=== PATIENT | female | born 1985 | race Caucasian/White ===

== ENCOUNTER 2016-10-30 13:55 | Emergency (ER) | payer SELFPAY ==
--- NOTE | 2016-10-30 14:03 | ER Document Report ---
ED Medical Screen (RME) - General Stated Complaint: ETOH Time seen by provider: 14:00 Mode of Arrival: Ambulatory Information source: Patient Notes: 31-year-old female presents to ED today for alcohol detox. She states she's had 2 shots of vodka today around 11 or 12:00. She normally drinks 4 24 ounce beers a day she's had a hysterectomy. She states she was trying to self medicate to help her get off of the alcohol with the Clonopin. She states it would also help her with her schizophrenia. I have greeted and performed a rapid initial assessment of this patient. A comprehensive ED assessment and evaluation of the patient, analysis of test results and completion of medical decision making process will be conducted by an additional ED providers. TRAVEL OUTSIDE OF THE [place] IN LAST 30 DAYS: No - Related Data Allergies/Adverse Reactions: Penicillins Allergy (Verified 11/10/15 17:12) Past Medical History - Past Medical History Cardiac Medical History: Reports: Hx Hypertension Past Surgical History: Reports: Hx Gynecologic Surgery - D&C, Hx Hysterectomy - Immunizations Hx Diphtheria, Pertussis, Tetanus Vaccination: No
[2016-10-30] MEDS ORDERED: NORMAL SALINE 1000 ML 1,000 ML IV PRN (14:17)
[2016-10-30 14:33] LABS: APPEARANCE,URINE SLIGHTLY-CLOUDY; BILIRUBIN,URINE NEGATIVE (NEGATIVE); GLUCOSE, URINE NEGATIVE (NEGATIVE); KETONES,URINE NEGATIVE (NEGATIVE); LEUKOCYTE ESTERASE,URINE NEGATIVE (NEGATIVE); NITRITE,URINE NEGATIVE (NEGATIVE); PROTEIN,URINE NEGATIVE (NEGATIVE); URINE SPECIFIC GRAVITY 1.023; UROBILINOGEN,URINE NEGATIVE mg/dL (<2.0)
[2016-10-30] MEDS ORDERED: LORAZEPAM INJ 2 MG/1 ML VIAL IV ONE (14:36)
[2016-10-30 14:50] LABS: ABSOLUTE EOSINOPHILS # (AUTO) 0.1 10^3/uL (0.0-0.6); ABSOLUTE LYMPHOCYTES (AUTO) 2.7 10^3/uL (0.5-4.7); ABSOLUTE MONOCYTES (AUTO) 0.7 10^3/uL (0.1-1.4); ABSOLUTE NEUT (AUTO) 4.7 10^3/uL (1.7-8.2); BASOPHILS % (AUTO) 0.4 % (0-2); HEMATOCRIT 45.1 % (36.0-47.0); HEMOGLOBIN 14.7 g/dL (12.0-15.5); MEAN CORPUSCULAR HEMOGLOBIN 32.2 pg (27.0-33.4); MEAN CORPUSCULAR HGB CONC 32.6 g/dL (32.0-36.0); MEAN CORPUSCULAR VOLUME 99 fl (80-97); MONOCYTES % (AUTO) 8.5 % (3-13); RED BLOOD COUNT 4.56 10^6/uL (3.72-5.28); RED CELL DISTRIBUTION WIDTH 15.6 % (11.5-14.0); SEGMENTED NEUTROPHILS % (AUTO) 57.1 % (42-78); WHITE BLOOD COUNT 8.2 10^3/uL (4.0-10.5)
--- NOTE | 2016-10-30 14:52 | ER Document Report ---
ED General - General Chief Complaint: Alcohol Withdrawl Stated Complaint: ETOH Mode of Arrival: Ambulatory TRAVEL OUTSIDE OF THE [place] IN LAST 30 DAYS: No - HPI Patient complains to provider of: alcohol with drawls Notes: Patient is coming in for evaluation of alcohol withdrawals. Patient also has a history of schizophrenia and hypertension. Patient states she is on no medications. Patient states normally drinks between 4-6 24 ounce beers a day. Patient states today she had a court appearance after the court appearance had 2 shots of vodka at around 11:00. Otherwise patient states she does feel very tremulous. Patient denies going through DTs or occult drawls before. Patient states she has gone through opiate withdrawals. Patient has been self- medicating with Klonopin. Patient is not aware of and last time she took any Klonopin this stated that she smoked marijuana night prior to arrival. Other than 2 shots of vodka this morning patient's last alcohol intake was night prior a core into family member at bedside patient was extremity drunk is unable to recall the events 24 hours ago Patient states symptoms does have hallucinations due to her schizophrenia. Patient denies any hallucinations at this time. Patient denies any homicidal suicidal ideation. - Related Data Allergies/Adverse Reactions: Penicillins Allergy (Verified 10/30/16 14:06) Past Medical History - General Information source: Patient - Social History Smoking Status: Current Every Day Smoker Chew tobacco use (# tins/day): No Frequency of alcohol use: Heavy Drug Abuse: Prescription drugs Family History: Reviewed & Not Pertinent, Other - Unknown, patient cannot provide history. Patient has suicidal ideation: No Patient has homicidal ideation: No - Past Medical History Cardiac Medical History: Reports: Hx Hypertension Renal/ Medical History: Denies: Hx Peritoneal Dialysis Past Surgical History: Reports: Hx Gynecologic Surgery - D&C, Hx Hysterectomy - Immunizations Hx Diphtheria, Pertussis, Tetanus Vaccination: No Review of Systems - Review of Systems Constitutional: No symptoms reported EENT: No symptoms reported Cardiovascular: No symptoms reported Respiratory: No symptoms reported Gastrointestinal: No symptoms reported Genitourinary: No symptoms reported Female Genitourinary: No symptoms reported Musculoskeletal: No symptoms reported Skin: No symptoms reported Hematologic/Lymphatic: No symptoms reported Neurological/Psychological: Tremor, Other - Alcohol drawls Physical Exam - Vital signs Vitals: Temp Pulse Resp BP Pulse Ox 98.4 F 113 H 20 154/101 H 96 10/30/16 14:02 10/30/16 14:02 10/30/16 14:02 10/30/16 14:02 10/30/16 14:02 Interpretation: Hypertensive, Tachycardic - General General appearance: Appears well, Alert - HEENT Head: Normocephalic, Atraumatic Eyes: Normal Pupils: PERRL - Respiratory Respiratory status: No respiratory distress Chest status: Nontender Breath sounds: Normal Chest palpation: Normal - Cardiovascular Rhythm: Tachycardia Heart sounds: Normal auscultation Murmur: No - Abdominal Inspection: Normal Distension: No distension Bowel sounds: Normal Tenderness: Nontender Organomegaly: No organomegaly - Back Back: Normal, Nontender - Extremities General upper extremity: Normal inspection - Slight tremor in bilateral upper extremities, Nontender, Normal color, Normal ROM, Normal temperature General lower extremity: Normal inspection, Nontender, Normal color, Normal ROM , Normal temperature, Normal weight bearing. No: Jules's sign - Neurological Neuro grossly intact: Yes Cognition: Normal Orientation: AAOx4 Home Coma Scale Eye Opening: Spontaneous Home Coma Scale Verbal: Oriented Home Coma Scale Motor: Obeys Commands [place] Coma Scale Total: 15 Speech: Normal Motor strength normal: LUE, RUE, LLE, RLE Sensory: Normal - Psychological Associated symptoms: Normal affect, Normal mood - Skin Skin Temperature: Warm Skin Moisture: Dry Skin Color: Normal Course - Re-evaluation Re-evalutation: 10/30/16 14:51 Patient with a slight resting tremor in her hand. Patient is tachycardic hypertensive. Patient will be given a dose of Ativan and will be fluid resuscitated. 10/30/16 22:31 Patient improved after Ativan vital signs improved agrees outpatient treatment. - Vital Signs Vital signs: Temp Pulse Resp BP Pulse Ox 98.6 F 81 20 133/86 H 94 10/30/16 16:38 10/30/16 16:38 10/30/16 16:38 10/30/16 16:38 10/30/16 16:38 - Laboratory Result Diagrams: 10/30/16 14:05 10/30/16 14:05 Laboratory results interpreted by me: 10/30/16 10/30/16 10/30/16 14:05 14:05 14:10 MCV 99 H RDW 15.6 H Glucose 111 H Calcium 10.3 H AST 138 H ALT 136 H Alkaline Phosphatase 150 H Total Protein 8.3 H Urine Ascorbic Acid 20 H Acetaminophen < 10 L [place] < 0.2 L Discharge - Discharge Clinical Impression: Alcohol abuse Condition: Good Disposition: HOME, SELF-CARE Instructions: Alcohol Withdrawl ([facility]), Chronic Alcoholism ([facility]) Additional Instructions: At this time your lab work and vital signs have improved. I believe that he will be a good candidate for outpatient therapy for her alcohol abuse. We will give you a prescription for Librium please take as directed. I would also recommend going directly over to [facility] for further outpatient evaluation Prescriptions: Chlordiazepoxide HCl [Librium 25 mg Capsule] 1 cap PO ASDIR PRN #15 capsule PRN Reason: Forms: Smoking Cessation Education
[2016-10-30 15:06] LABS: ALANINE AMINOTRANSFERASE 136 U/L (9-52); ALBUMIN 4.8 g/dL (3.5-5.0); ALKALINE PHOSPHATASE 150 U/L (38-126); ANION GAP 14 (5-19); ASPARTATE AMINO TRANSFERASE 138 U/L (14-36); BILIRUBIN,TOTAL 0.8 mg/dL (0.2-1.3); BLOOD UREA NITROGEN 20 mg/dL (7-20); CALCIUM 10.3 mg/dL (8.4-10.2); CARBON DIOXIDE 29 mmol/L (22-30); CHLORIDE 99 mmol/L (98-107); CREATININE RESULT 1.04 mg/dL (0.52-1.25); GLUCOSE 111 mg/dL (75-110); LIPASE 132.8 U/L (23-300); MAGNESIUM 1.6 mg/dL (1.6-2.3); POTASSIUM 3.9 mmol/L (3.6-5.0); SODIUM 141.6 mmol/L (137-145); TOTAL PROTEIN 8.3 g/dL (6.3-8.2)
[2016-10-30 15:08] LABS: ALCOHOL < 10 mg/dL (NONE DETECTED); LITHIUM < 0.2 mEq/L (0.6-1.2)
[2016-10-30 16:22] LABS: URINE BARBITURATES SCREEN NEGATIVE; URINE METHADONE SCREEN NEGATIVE; URINE PHENCYCLIDINE SCREEN NEGATIVE
[2016-10-30 16:40] VITALS: BP 133/86
--- NOTE | 2016-10-30 16:56 | PSYCHOLOGICAL NOTE ---
Psych Note - Psych Note Psych Note: Patient presented to [facility] ED for evaluation for alcohol withdrawals. Patient also has a history of schizophrenia and hypertension. Patient states she is on no medications. As patient states that she has been drinking for approximately 4 years and at times uses marijuana and will take a Klonopin if somebody has one. She continue disclose that she's been having mental health issues and that are getting worse starting to affect her daily living. She disclosed that she has audio and visual hallucinations with delusions of persecution. She states last night she broke the windows of the trailer because helicopter was going over and moving the windows in an odd way and she thought they were talking to her. She continued disclosed that she hears voices inside and outside of her head however does not recognize the voice. She states she does understand what they say and is both good and bad however is unable to disclose an example of what the voices say. Patient states that her visual hallucinations are when she is looking at something such as a tree it starts to move an odd way and then talk. Patient disclosed that current symptoms have "increased over the last month or so." Patient disclosed that she has had 4 inpatient treatment to at [facility] one rehabilitation in [place] and another rehabilitation in [place]. Patient disclosed that she does not take any mental health medications and it does not receive any outpatient services. Patient denies wanting to hurt herself or others. Patient significant other, Fabrice, started to disclose traumatic event that occurred from patient's acts. Clinician noted patient becoming agitated and requested significant other to provide time for clinician to speak with patient privately. Significant other complied. When patient asked about traumatic event, patient was unwilling to discuss event stating that it happened long time ago and there is no reason to think about it. When asked when it occurred the patient stated it was a few months ago. Patient is alert and orientated to person place time and circumstance. Mood is dysphoric with restricted affect; it is noted patient is currently going through alcohol withdrawal demonstrated by shaking. Patient denies suicidal homicidal ideation. Patient endorses auditory and visual hallucinations; it is noted visual hallucinations are not congruent with known in manifestations of visual hallucinations. It is also noted that the patient was unable to identify examples of auditory hallucinations. Some delusions of persecution are noted; however, patient disclosed traumatic event that occurred a few months ago. Patient's thought processes are logical, organized and linear. Conversational speech within normal rate tone and prosody. Eye contact was well maintained. Intellectual abilities appear to be within normal range. Attention and concentration are good. Insight, judgment, impulse control are fair. 291.9 (F 10.99) Unspecified Alcohol-Related Disorder Impression\\plan: Patient is psychiatrically cleared for discharge. Patient and clinician discussed symptoms of substance abuse overlapping reported mental health symptoms. Patient agreed substance abuse treatment was needed. Patient agreed to outpatient services for substance abuse with [facility] so both her mental health and substance abuse can be addressed. Patient denies suicidal homicidal ideation. Patient is psychiatrically cleared for discharge; attending physician is in agreement with recommendations and disposition.
== END 2016-10-30 17:13 | disposition home or self-care (01) ==
LOC: ER 13:55
DX: F10.239 Alcohol dependence with withdrawal, unspecified (principal); F17.200 Nicotine dependence, unspecified, uncomplicated; I10 Essential (primary) hypertension; F20.9 Schizophrenia, unspecified; Z88.0 Allergy status to penicillin; Z90.710 Acquired absence of both cervix and uterus
CPT/HCPCS: 99285; 96361; 96374; 36415; 80307 ×3; 83690; 80178; 83735; 85025; 81025; 80053; 81001; J2060; J7030

== ENCOUNTER 2016-11-01 09:41 | Emergency (ER) | payer SELFPAY ==
[2016-11-01] MEDS ORDERED: DIPHENHYDRAMINE HCL 50 MG CAPSULE PO ONE (10:12)
[2016-11-01] MEDS ORDERED: FAMOTIDINE 20 MG TABLET PO ONE (10:12)
[2016-11-01] MEDS ORDERED: LORAZEPAM 1 MG TABLET PO ONE ×2 (10:13→12:42)
--- NOTE | 2016-11-01 10:34 | ER Document Report ---
ED Medical Screen (RME) - General Chief Complaint: Allergic Reaction Stated Complaint: WEAKNESS Time seen by provider: 10:11 Mode of Arrival: Ambulatory Information source: Patient Notes: 31 yo female c/o onset of hives after startin librium for alcohol withdrawal, they have persisted after serveral doses. Also anxious. Airway open, lungs clear , hypertension noted in triage. TRAVEL OUTSIDE OF THE [place] IN LAST 30 DAYS: No - Related Data Allergies/Adverse Reactions: Penicillins Allergy (Verified 11/01/16 10:07) Past Medical History - Past Medical History Cardiac Medical History: Reports: Hx Hypertension Renal/ Medical History: Denies: Hx Peritoneal Dialysis Musculoskeltal Medical History: Denies Hx Arthritis Past Surgical History: Reports: Hx Gynecologic Surgery - D&C, Hx Hysterectomy - Immunizations Hx Diphtheria, Pertussis, Tetanus Vaccination: No Physical Exam - Vital signs Vitals: Temp Pulse Resp BP Pulse Ox 98.0 F 98 16 154/119 H 100 11/01/16 10:09 11/01/16 10:09 11/01/16 10:09 11/01/16 10:09 11/01/16 10:09 Course - Vital Signs Vital signs: Temp Pulse Resp BP Pulse Ox 98.0 F 98 24 H 133/91 H 99 11/01/16 12:05 11/01/16 10:09 11/01/16 14:11 11/01/16 14:11 11/01/16 14:11 - Laboratory Result Diagrams: 11/01/16 10:25 11/01/16 10:25 Laboratory results interpreted by me: 11/01/16 11/01/16 10:25 10:25 MCV 98 H RDW 15.3 H Glucose 64 L AST 91 H ALT 111 H Doctor's Discharge - Discharge Clinical Impression: Allergic reaction, Anxiety Condition: Stable Disposition: HOME, SELF-CARE Additional Instructions: ACUTE ALLERGIC REACTION: Your symptoms are due to an allergic reaction. Allergy can cause hives, swelling of the hands, feet, and face, hoarseness, and difficulty swallowing or breathing. It may be due to exposure to medication, animal dander, foods, infection, or insect bites. Medication is a common cause, even when prior use of this same medication caused no problems. Acute treatment may include adrenalin and antihistamines. Usually, the specific allergic agent can't be identified unless repeated episodes occur. Home treatment includes the following: (1) Stop any suspicious medications. This will be discussed with you. (2) Oral antihistamines for the next four to five days. Example, diphenhydramine (Benadryl) every four hours. (3) You may also use cimetidine (Tagamet), ranitidine (Zantac), or famotidine ( Pepcid) every four hours if diphenhydramine is not controlling itching and hives. (4) Avoid aspirin until the hives completely disappear. (5) Avoid hot baths or showers until the hives are completely gone. Call the doctor if faintness, difficulty swallowing, tightness in the chest , or wheezing occurs. ACID-SUPPRESSING MEDICATION: You have a prescription for medicine which reduces the stomach's secretion of acid. Examples include Zantac, Tagament, and Pepcid. These drugs are often used to allow healing of ulcers or esophagitis. They may be needed to prevent recurrence of ulcers in some patients, or to prevent damage from acid reflux in the esophagus. Take all medication as prescribed, even after the pain is gone. Regular antacids may be added as needed if you have symptoms while taking this medicine. These medications sometimes are prescribed for allergic reactions because they have anti-histaminic effects and relieve the rash and itching of the reaction. There are usually no side effects from this medication. But, in rare cases and particularly in the elderly, serious problems can occur. Contact your doctor if there is fever, rash, hallucinations, confusion, or unusual bruising. Contact your doctor at once if you develop lightheadedness, black or bloody stool, or bloody vomitus. ANTIHISTAMINES: An antihistamine has been given and/or prescribed to control your symptoms. Antihistamines are used for many reasons, including itching, watering eyes, runny nose, allergic swelling, hives, and insect stings. Antihistamines may cause drowsiness, especially with the first dose. Do not operate machinery or drive while under the effects of the medication. Other common side effects include dry mouth and eyes. In older persons, antihistamines can occasionally cause urinary retention, constipation, and trouble focusing the eyes. Do not combine the medication with alcohol, or with any other medication without talking to your doctor. USE OF DIPHENHYDRAMINE: The use of diphenhydramine (Benadryl) has been recommended to control allergic symptoms. The 25 mg strength is available over- the-counter, as well as the elixir. This antihistamine is used for many symptoms. It's useful for itching, watering eyes and nose, allergic swelling, hives, and insect stings. The medication can be repeated four times daily. Age Elixir (12.5 mg/tsp) 25 mg pill adult 1-2 tabs Antihistamines may cause drowsiness, especially with the first dose. Do not operate machinery or drive while under the effects of the medication. Do not combine the medication with alcohol, or with any other medication without talking to your doctor. Anxiety The physician feels that some of your health problems are being caused by anxiety. Anxiety affects your health in many ways. Anxiety alone can cause palpitations, sweats, chest pains, abdominal pains, shortness of breath, and headaches. It contributes to ulcer disease, high blood pressure, irritable bowel syndrome, and has been shown to cause flare-ups of many other diseases. Anxiety is not a simple disorder to treat. If the anxiety is due to recent life stresses, you may simply need time to "work through" the changes. If the anxiety is due to an underlying unhappiness with yourself or due to psychiatric disturbance, professional help will be needed. Your physician can refer you for further help if needed. Anti-anxiety medication is occasionally given if the stress is acute or if you are having trouble sleeping. Chronic or frequent use of these medications is not a good idea because the body becomes reliant on it, preventing you from dealing with life's normal stresses. Benzodiazepines You have been given a benzodiazepine medication. Examples of this type of medicine include Valium, Xanax, Librium, Ativan, and Halcion. Benzodiazepines have many uses. Medications of this type are used for insomnia, anxiety, muscle spasms, seizures, and drug and alcohol withdrawal. You may become very drowsy when you first take the medication. You should not drive or operate machinery while under its effects. Do not combine the medication with alcohol, or with any other medication without talking to your doctor. Do not take if without specific instruction from your puller through. Some benzodiazepines may have harmful interactions with oral antifungal medicines such as ketoconazole, itraconazole, and nefazodone. If you are taking an antifungal medicine, discuss this with your doctor before taking benzodiazepines. FOLLOW-UP CARE: If you have been referred to a physician for follow-up care, call the physician s office for an appointment as you were instructed or within the next two days. If you experience worsening or a significant change in your symptoms, notify the physician immediately or return to the Emergency Department at any time for re-evaluation. Prescriptions: Lorazepam [Ativan 1 mg Tablet] 1 - 2 mg PO Q6HP PRN #12 tab PRN Reason:
[2016-11-01 10:53] LABS: ABSOLUTE EOSINOPHILS # (AUTO) 0.2 10^3/uL (0.0-0.6); ABSOLUTE LYMPHOCYTES (AUTO) 2.5 10^3/uL (0.5-4.7); ABSOLUTE MONOCYTES (AUTO) 0.6 10^3/uL (0.1-1.4); ABSOLUTE NEUT (AUTO) 3.6 10^3/uL (1.7-8.2); BASOPHILS % (AUTO) 0.5 % (0-2); EOSINOPHILS % (AUTO) 2.3 % (0-6); HEMATOCRIT 43.7 % (36.0-47.0); HEMOGLOBIN 14.4 g/dL (12.0-15.5); HGB HCT DIFFERENCE -0.5; LYMPHOCYTES % (AUTO) 36.9 % (13-45); MEAN CORPUSCULAR HEMOGLOBIN 32.3 pg (27.0-33.4); MEAN CORPUSCULAR VOLUME 98 fl (80-97); MONOCYTES % (AUTO) 8.1 % (3-13); RED BLOOD COUNT 4.46 10^6/uL (3.72-5.28); RED CELL DISTRIBUTION WIDTH 15.3 % (11.5-14.0); SEGMENTED NEUTROPHILS % (AUTO) 52.2 % (42-78); WHITE BLOOD COUNT 6.8 10^3/uL (4.0-10.5)
[2016-11-01 11:12] LABS: ALANINE AMINOTRANSFERASE 111 U/L (9-52); ALBUMIN 4.3 g/dL (3.5-5.0); ALKALINE PHOSPHATASE 115 U/L (38-126); ANION GAP 8 (5-19); ASPARTATE AMINO TRANSFERASE 91 U/L (14-36); BILIRUBIN,TOTAL 1.1 mg/dL (0.2-1.3); BLOOD UREA NITROGEN 11 mg/dL (7-20); CARBON DIOXIDE 26 mmol/L (22-30); CHLORIDE 107 mmol/L (98-107); CREATININE RESULT 0.86 mg/dL (0.52-1.25); GLUCOSE 64 mg/dL (75-110); POTASSIUM 4.2 mmol/L (3.6-5.0); SODIUM 141.1 mmol/L (137-145); TOTAL PROTEIN 7.6 g/dL (6.3-8.2)
[2016-11-01 11:14] LABS: ALCOHOL < 10 mg/dL (NONE DETECTED)
--- NOTE | 2016-11-01 11:50 | ER Document Report ---
ED General - General Chief Complaint: Allergic Reaction Stated Complaint: WEAKNESS Mode of Arrival: Ambulatory Notes: Patient says that she developed hives evening and they've continued during the day yesterday and this morning. She was seen here on , prior to the onset of the hives, for alcohol withdrawal. She was discharged on Librium which she thinks is the cause of her allergic reaction, although she has never had this medication before. She denies taking any other medications. Patient says that she took the Librium evening just prior to the onset of the hives and then she took it several times yesterday, as prescribed. And, she took it this morning around 5 AM when she awakened. She says she has a history of anxiety Denies any nausea or vomiting or diarrhea. Denies any difficulty breathing or shortness of breath. Denies any fever. PMH: Alcohol abuse, anxiety, ADHD, schizophrenia, on no medications for these conditions. TRAVEL OUTSIDE OF THE [place] IN LAST 30 DAYS: No - Related Data Allergies/Adverse Reactions: Penicillins Allergy (Verified 11/01/16 10:07) Past Medical History - General Information source: Patient - Social History Smoking Status: Current Every Day Smoker Cigarette use (# per day): Yes Chew tobacco use (# tins/day): No Frequency of alcohol use: Heavy Drug Abuse: None Family History: Reviewed & Not Pertinent, Other - Unknown, patient cannot provide history. Patient has suicidal ideation: No Patient has homicidal ideation: No - Past Medical History Cardiac Medical History: Reports: Hx Hypertension, Hx Heart Murmur Musculoskeltal Medical History: Denies Hx Arthritis Psychiatric Medical History: Reports: Hx Anxiety, Hx Attention Deficit Hyperactivity Disorder, Hx Schizophrenia, Other - Alcohol abuse Past Surgical History: Reports: Hx Gynecologic Surgery - D&C, Hx Hysterectomy - Immunizations Hx Diphtheria, Pertussis, Tetanus Vaccination: No Review of Systems - Review of Systems Notes: REVIEW OF SYSTEMS: CONSTITUTIONAL : Denies fever. EENT: Denies eye, ear, nose or mouth or throat pain or other symptoms. CARDIOVASCULAR: Denies chest pain. RESPIRATORY: Denies cough, chest congestion, or shortness of breath. GASTROINTESTINAL: Denies abdominal pain or nausea, vomiting, or diarrhea. GENITOURINARY: Denies difficulty or painful urinating, urinary frequency, blood in urine. MUSCULOSKELETAL: Denies back or neck pain. Denies joint pain or swelling. SKIN: See history of present illness. NEUROLOGICAL: Denies LOC or altered mental status. Denies sensory loss or motor deficits. PSYCHIATRIC: History of anxiety and stress. Also ADHD and schizophrenia ALL OTHER SYSTEMS REVIEWED AND NEGATIVE. 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 Heart rate appears to be 120s on the monitor. HEAD: Atraumatic, normocephalic. ENT: oropharynx clear without exudates. Moist mucous membranes. No intraoral lesions. NECK: Normal range of motion, supple. LUNGS: Breath sounds clear and equal bilaterally. No wheezes heard. HEART: Regular rate and rhythm without murmurs. I do not hear a murmur. ABDOMEN: Soft, nontender. No guarding or rebound. BACK: No tenderness throughout entire back. EXTREMITIES: Normal range of motion without pain. NEUROLOGICAL: Normal speech, normal gait. Normal sensory, motor, and reflex exams. Awake, alert, and oriented x3. Cranial nerves normal. PSYCH: Extremely anxious and trembling. SKIN: Warm, dry. Patient does have what appears to be urticarial lesions on her torso and extremities. Course - Re-evaluation Re-evalutation: 11/01/16 12:40 Patient's heart rate has come down to about 100 and she's trembling a lot less. I don't think her heart rate was more than about 120 when she first came in but her trembling made the monitor record 130s and 140s for her heart rate. I don't think these were accurate. At the time I examined the lady, her heart rate was no more than 100 210 even though the monitor was showing 120 to 130. Patient's hives are decreasing significantly and does not have significant pruritus at this time. Continues to have trembling and shaking with associated diaphoresis. Patient's blood pressure continues to be recorded at 140s over 120 and I question how reliable that is, as well. However, the patient does have a history of hypertension and used to be on medication, but is not taking any now. I will give her 0.1 of clonidine and another 1 mg of Ativan by mouth. 11/01/16 14:27 Feeling much better. Vital signs are all essentially normal now with a heart rate of 101, respirations less than 20, O2 sat 98%, blood pressure 133/91. Patient is sitting up on the stretcher and eating lunch without difficulty. No longer trembling or shaking. I don't have this patient's symptoms were from the Librium or not, but it's strange that we've been giving her Ativan to relieve her symptoms and she's getting better. Who seem to me to be unusual for Librium to cause allergic reaction, as well. She is not on any other new medicines or anything else that might have caused her to have an allergic response today. Still, I have advised her not to take Librium in the future. - Vital Signs Vital signs: Temp Pulse Resp BP Pulse Ox 98.0 F 98 16 122/91 H 98 11/01/16 12:05 11/01/16 10:09 11/01/16 14:01 11/01/16 14:00 11/01/16 14:01 - Laboratory Result Diagrams: 11/01/16 10:25 11/01/16 10:25 Laboratory results interpreted by me: 11/01/16 11/01/16 10:25 10:25 MCV 98 H RDW 15.3 H Glucose 64 L AST 91 H ALT 111 H Discharge - Discharge Clinical Impression: Anxiety Allergic reaction Qualifiers: Encounter type: initial encounter Qualified Code(s): T78.40XA - Allergy, unspecified, initial encounter Condition: Stable Disposition: HOME, SELF-CARE Additional Instructions: ACUTE ALLERGIC REACTION: Your symptoms are due to an allergic reaction. Allergy can cause hives, swelling of the hands, feet, and face, hoarseness, and difficulty swallowing or breathing. It may be due to exposure to medication, animal dander, foods, infection, or insect bites. Medication is a common cause, even when prior use of this same medication caused no problems. Acute treatment may include adrenalin and antihistamines. Usually, the specific allergic agent can't be identified unless repeated episodes occur. Home treatment includes the following: (1) Stop any suspicious medications. This will be discussed with you. (2) Oral antihistamines for the next four to five days. Example, diphenhydramine (Benadryl) every four hours. (3) You may also use cimetidine (Tagamet), ranitidine (Zantac), or famotidine ( Pepcid) every four hours if diphenhydramine is not controlling itching and hives. (4) Avoid aspirin until the hives completely disappear. (5) Avoid hot baths or showers until the hives are completely gone. Call the doctor if faintness, difficulty swallowing, tightness in the chest , or wheezing occurs. ACID-SUPPRESSING MEDICATION: You have a prescription for medicine which reduces the stomach's secretion of acid. Examples include Zantac, Tagament, and Pepcid. These drugs are often used to allow healing of ulcers or esophagitis. They may be needed to prevent recurrence of ulcers in some patients, or to prevent damage from acid reflux in the esophagus. Take all medication as prescribed, even after the pain is gone. Regular antacids may be added as needed if you have symptoms while taking this medicine. These medications sometimes are prescribed for allergic reactions because they have anti-histaminic effects and relieve the rash and itching of the reaction. There are usually no side effects from this medication. But, in rare cases and particularly in the elderly, serious problems can occur. Contact your doctor if there is fever, rash, hallucinations, confusion, or unusual bruising. Contact your doctor at once if you develop lightheadedness, black or bloody stool, or bloody vomitus. ANTIHISTAMINES: An antihistamine has been given and/or prescribed to control your symptoms. Antihistamines are used for many reasons, including itching, watering eyes, runny nose, allergic swelling, hives, and insect stings. Antihistamines may cause drowsiness, especially with the first dose. Do not operate machinery or drive while under the effects of the medication. Other common side effects include dry mouth and eyes. In older persons, antihistamines can occasionally cause urinary retention, constipation, and trouble focusing the eyes. Do not combine the medication with alcohol, or with any other medication without talking to your doctor. USE OF DIPHENHYDRAMINE: The use of diphenhydramine (Benadryl) has been recommended to control allergic symptoms. The 25 mg strength is available over- the-counter, as well as the elixir. This antihistamine is used for many symptoms. It's useful for itching, watering eyes and nose, allergic swelling, hives, and insect stings. The medication can be repeated four times daily. Age Elixir (12.5 mg/tsp) 25 mg pill adult 1-2 tabs Antihistamines may cause drowsiness, especially with the first dose. Do not operate machinery or drive while under the effects of the medication. Do not combine the medication with alcohol, or with any other medication without talking to your doctor. Anxiety The physician feels that some of your health problems are being caused by anxiety. Anxiety affects your health in many ways. Anxiety alone can cause palpitations, sweats, chest pains, abdominal pains, shortness of breath, and headaches. It contributes to ulcer disease, high blood pressure, irritable bowel syndrome, and has been shown to cause flare-ups of many other diseases. Anxiety is not a simple disorder to treat. If the anxiety is due to recent life stresses, you may simply need time to "work through" the changes. If the anxiety is due to an underlying unhappiness with yourself or due to psychiatric disturbance, professional help will be needed. Your physician can refer you for further help if needed. Anti-anxiety medication is occasionally given if the stress is acute or if you are having trouble sleeping. Chronic or frequent use of these medications is not a good idea because the body becomes reliant on it, preventing you from dealing with life's normal stresses. Benzodiazepines You have been given a benzodiazepine medication. Examples of this type of medicine include Valium, Xanax, Librium, Ativan, and Halcion. Benzodiazepines have many uses. Medications of this type are used for insomnia, anxiety, muscle spasms, seizures, and drug and alcohol withdrawal. You may become very drowsy when you first take the medication. You should not drive or operate machinery while under its effects. Do not combine the medication with alcohol, or with any other medication without talking to your doctor. 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 Some benzodiazepines may have harmful interactions with oral antifungal medicines such as ketoconazole, itraconazole, and nefazodone. If you are taking an antifungal medicine, discuss this with your doctor before taking benzodiazepines. FOLLOW-UP CARE: If you have been referred to a physician for follow-up care, call the physician s office for an appointment as you were instructed or within the next two days. If you experience worsening or a significant change in your symptoms, notify the physician immediately or return to the Emergency Department at any time for re-evaluation. Prescriptions: Lorazepam [Ativan 1 mg Tablet] 1 - 2 mg PO Q6HP PRN #12 tab PRN Reason:
[2016-11-01] MEDS ORDERED: CLONIDINE HCL 0.1 MG TABLET PO ONE (12:42)
[2016-11-01 14:33] VITALS: BP 133/91
== END 2016-11-01 14:37 | disposition home or self-care (01) ==
LOC: ER 09:41
DX: F41.9 Anxiety disorder, unspecified (principal); T78.40XA Allergy, unspecified, initial encounter; X58.XXXA Exposure to other specified factors, initial encounter; I10 Essential (primary) hypertension; F17.210 Nicotine dependence, cigarettes, uncomplicated; Z88.0 Allergy status to penicillin
CPT/HCPCS: 36415; 80053; 80307; 85025; 99283

== ENCOUNTER 2016-11-03 13:01 | Emergency (ER) | payer SELFPAY ==
--- NOTE | 2016-11-03 13:14 | ER Document Report ---
ED Medical Screen (RME) - General Chief Complaint: High Blood Pressure Stated Complaint: POSSIBLE HIGH BLOOD PRESSURE Time seen by provider: 13:12 Mode of Arrival: Ambulatory Information source: Patient Notes: 31-year-old female presents to ED for elevated blood pressure while trying to detox from alcohol. She has a history of blood pressure problems in the past with medications. High anxiety, palpitations, high blood pressure. I have greeted and performed a rapid initial assessment of this patient. A comprehensive ED assessment and evaluation of the patient, analysis of test results and completion of medical decision making process will be conducted by an additional ED providers. TRAVEL OUTSIDE OF THE [place] IN LAST 30 DAYS: No - Related Data Allergies/Adverse Reactions: Penicillins Allergy (Verified 11/01/16 10:07) Past Medical History - Past Medical History Cardiac Medical History: Reports: Hx Hypertension, Hx Heart Murmur Renal/ Medical History: Denies: Hx Peritoneal Dialysis Musculoskeltal Medical History: Denies Hx Arthritis Psychiatric Medical History: Reports: Hx Anxiety, Hx Attention Deficit Hyperactivity Disorder, Hx Schizophrenia Past Surgical History: Reports: Hx Gynecologic Surgery - D&C, Hx Hysterectomy - Immunizations Hx Diphtheria, Pertussis, Tetanus Vaccination: No
[2016-11-03 13:57] LABS: ABSOLUTE LYMPHOCYTES (AUTO) 2.5 10^3/uL (0.5-4.7); ABSOLUTE MONOCYTES (AUTO) 0.5 10^3/uL (0.1-1.4); ABSOLUTE NEUT (AUTO) 5.8 10^3/uL (1.7-8.2); BASOPHILS % (AUTO) 0.4 % (0-2); EOSINOPHILS % (AUTO) 0.4 % (0-6); HEMOGLOBIN 14.8 g/dL (12.0-15.5); HGB HCT DIFFERENCE 0.4; LYMPHOCYTES % (AUTO) 28.2 % (13-45); MEAN CORPUSCULAR HEMOGLOBIN 32.6 pg (27.0-33.4); MEAN CORPUSCULAR HGB CONC 33.6 g/dL (32.0-36.0); MEAN CORPUSCULAR VOLUME 97 fl (80-97); MONOCYTES % (AUTO) 6.1 % (3-13); RED BLOOD COUNT 4.54 10^6/uL (3.72-5.28); SEGMENTED NEUTROPHILS % (AUTO) 64.9 % (42-78)
[2016-11-03 14:00] LABS: APPEARANCE,URINE CLOUDY; BILIRUBIN,URINE SMALL (NEGATIVE); GLUCOSE, URINE NEGATIVE (NEGATIVE); KETONES,URINE TRACE mg/dL (NEGATIVE); LEUKOCYTE ESTERASE,URINE TRACE (NEGATIVE); NITRITE,URINE NEGATIVE (NEGATIVE); PROTEIN,URINE 30 mg/dL (NEGATIVE); URINE SPECIFIC GRAVITY 1.025
[2016-11-03 14:13] LABS: URINE BARBITURATES SCREEN NEGATIVE; URINE METHADONE SCREEN NEGATIVE; URINE PHENCYCLIDINE SCREEN NEGATIVE
[2016-11-03 14:18] LABS: ALANINE AMINOTRANSFERASE 113 U/L (9-52); ALBUMIN 4.3 g/dL (3.5-5.0); ALKALINE PHOSPHATASE 116 U/L (38-126); ANION GAP 13 (5-19); ASPARTATE AMINO TRANSFERASE 80 U/L (14-36); BILIRUBIN,TOTAL 0.9 mg/dL (0.2-1.3); BLOOD UREA NITROGEN 11 mg/dL (7-20); CALCIUM 10.3 mg/dL (8.4-10.2); CARBON DIOXIDE 26 mmol/L (22-30); CHLORIDE 99 mmol/L (98-107); CREATININE RESULT 1.03 mg/dL (0.52-1.25); GLUCOSE 122 mg/dL (75-110); POTASSIUM 3.9 mmol/L (3.6-5.0); SODIUM 137.5 mmol/L (137-145); TOTAL PROTEIN 8.2 g/dL (6.3-8.2)
--- NOTE | 2016-11-03 15:36 | ER Document Report ---
ED General - General Chief Complaint: High Blood Pressure Stated Complaint: POSSIBLE HIGH BLOOD PRESSURE Time seen by provider: 15:30 Mode of Arrival: Ambulatory Information source: Patient Notes: 31-year-old female states that she was sent from [facility] because of high blood pressure and high heart rate. Patient says she has history of alcohol abuse was has not had any alcohol in 4 days. She says that she sometimes checks her heart rate and it is high as 140 and sometimes checks her blood pressure and it is high as "129/139". Patient does say she feels slightly jittery now. She reports she's had problems with a rapid heart rate for years but does not take any particular medicine for it. She denies fever, chills, cough, earache, sore throat, headache, syncope, chest pain, abdominal pain, back pain, pain numbness weakness to extremities. Physical Exam: General: Alert, appears well. HEENT: Normocephalic. Atraumatic. PERRLA. Extraocular movements intact. Oropharynx clear. Neck: Supple. Non-tender. Respiratory: No respiratory distress. Clear and equal breath sounds bilaterally. Cardiovascular: Tachycardic and regular no murmur Abdominal: Normal Inspection. Soft, non-tender. No distension. Normal Bowel Sounds. Back: Non-tender. No deformity or step off. Extremities: Moves all four extremities. Upper extremities: Normal inspection. Non-tender. Normal color. Normal ROM. Normal temperature. Lower extremities: Normal inspection. Non-tender. No edema. Normal color. Normal ROM. Normal temperature. 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 Psychological: Normal affect. Normal Mood. Skin: Warm. Dry. Normal color.am TRAVEL OUTSIDE OF THE [place] IN LAST 30 DAYS: No - Related Data Allergies/Adverse Reactions: Penicillins Allergy (Verified 11/01/16 10:07) chlordiazepoxide [From Librium] Adverse Reaction (Verified 11/03/16 13:14) Past Medical History - General Information source: Patient - Social History Smoking Status: Current Every Day Smoker Family History: Reviewed & Not Pertinent Patient has suicidal ideation: No Patient has homicidal ideation: No - Past Medical History Cardiac Medical History: Reports: Hx Hypertension, Hx Heart Murmur Renal/ Medical History: Denies: Hx Peritoneal Dialysis Musculoskeltal Medical History: Denies Hx Arthritis Psychiatric Medical History: Reports: Hx Anxiety, Hx Attention Deficit Hyperactivity Disorder, Hx Schizophrenia Past Surgical History: Reports: Hx Gynecologic Surgery - D&C, Hx Hysterectomy - Immunizations Hx Diphtheria, Pertussis, Tetanus Vaccination: No Review of Systems - Review of Systems Constitutional: denies: Chills, Fever EENT: denies: Ear pain, Throat pain Cardiovascular: See HPI Respiratory: denies: Short of breath Gastrointestinal: denies: Abdominal pain, Nausea, Vomiting Genitourinary: denies: Burning, Dysuria Female Genitourinary: denies: Musculoskeletal: denies: Back pain Hematologic/Lymphatic: denies: Swollen glands Neurological/Psychological: denies: Weakness, Numbness Physical Exam - Vital signs Vitals: Temp Pulse Resp BP Pulse Ox 98.1 F 129 H 20 134/93 H 98 11/03/16 13:11 11/03/16 13:11 11/03/16 13:11 11/03/16 13:11 11/03/16 13:11 Course - Re-evaluation Re-evalutation: 11/03/16 15:34 Patient presents with cut margarita about tachycardia and high blood pressure but her blood pressure here is 134/93. She is noted to be tachycardic with nonspecific EKG changes but I believe those are rate related. Patient's last alcohol use was 4 days ago and I did not assess her as being report alcohol withdrawal requiring admission. Patient may have an anxiety component and she will be placed on Vistaril for that and asked to follow with our HFA for further counseling regarding alcohol abuse though she has successfully detoxed herself. She also be provided with primary care referral and she does not have one of those. - Vital Signs Vital signs: Temp Pulse Resp BP Pulse Ox 98.1 F 129 H 20 134/93 H 98 11/03/16 13:11 11/03/16 13:11 11/03/16 13:11 11/03/16 13:11 11/03/16 13:11 - Laboratory Result Diagrams: 11/03/16 13:25 11/03/16 13:25 Laboratory results interpreted by me: 11/03/16 11/03/16 11/03/16 13:25 13:25 13:25 RDW 15.0 H Glucose 122 H Calcium 10.3 H AST 80 H ALT 113 H Urine Protein 30 H Urine Ketones TRACE H Urine Bilirubin SMALL H Urine Urobilinogen 4.0 H Ur Leukocyte Esterase TRACE H Urine Ascorbic Acid 20 H - EKG Interpretation by Me Additional EKG results interpreted by me: 11/03/16 15:34 EKG review, so shows sinus tachycardia at 109 with minimal nonspecific T-wave changes in inferolateral leads Discharge - Discharge Clinical Impression: Alcohol abuse, Anxiety, Tachycardia Condition: Stable Disposition: HOME, SELF-CARE Additional Instructions: Sinus Tachycardia The palpitations (racing heart) you have felt are due to "sinus tachycardia." This is a rapid (but NORMAL) rhythm which can be due to fever, pain, anxiety, lack of sleep, over-exertion, or drugs. Cold medications, caffeine, and diet pills are particularly likely to cause tachycardia. The doctor has found no evidence of heart disease. Occasionally, medication is required for uncomfortable palpitations. Usually, however, all that is required is rest, reassurance, and avoiding caffeine, alcohol, nicotine , and unnecessary medicines. Call the doctor if you develop any new or unusual symptoms High Blood Pressure When your blood pressure was taken today it was elevated. Today's reading was____134/93 . Pre-hypertension/Hypertension: The patient has been informed that they may have pre-hypertension or Hypertension based on a blood pressure reading in the emergency department. I recommend that the patient call the primary care provider listed on their dischargge instructions or a physician of their choice this wee to arrage follow up for further evaluation of possible pre- hypertension or Hypertension. Sometimes, stress or illness causes a temporary elevation of your blood pressure. We suggest that you get your blood pressure measured three more times during the next few days to see if this is more than a temporary abnormality. If your blood pressure is greater than 150/90 on each occasion, you must have treatment. Some simple things you can do to help are: If you have blood pressure medicine but aren't using it regularly, start taking it again. Get some aerobic exercise for at least 20 minutes on a daily basis. (See your doctor before beginning a new exercise program.) Eat a low-fat diet. Lose excess weight. Avoid salty foods and avoid adding salt to any of the foods you eat. Avoid diet pills, decongestants, "energizing" herbs, and other medicines that elevate blood pressure. If left untreated, hypertension greatly enhances your risk for developing heart disease and strokes. Please don't ignore this problem. Alcohol Withdrawal After a period of frequent drinking, the brain and body are changed by the alcohol. When you quit or reduce your drinking, the nervous system becomes unstable. Withdrawal symptoms can start a few hours after your last drink, but sometimes don't begin until a couple of days later. Symptoms can include shakiness, sweating, insomnia, nausea, vomiting, fearfulness, hallucinations, and seizures. In addition to the acute effects of alcohol withdrawal, we often have to deal with the medical effects of alcoholism. These problems often include dehydration, stomach irritation, intestinal bleeding, low blood sugar, liver disease, and pancreas inflammation. Treatment for alcohol withdrawal includes mild sedatives, vitamins, and fluids. You need to be with someone who can help if symptoms become severe. Many patients can withdraw at home. Admission to the hospital or a detox facility may be necessary if withdrawal symptoms are severe and uncontrollable. Abstaining from alcohol is the only effective long-term treatment. If you start drinking again, you will not be able to control yourself after the first drink. Treatment programs are available. In addition, many alcoholics benefit from Alcoholics Anonymous or other support groups available through your counselor or shinto delivery assistant. [facility] and [employer] are support groups for friends and family members of an alcoholic. Go to the emergency room if you develop persistent vomiting, severe abdominal pain, fever, shortness of breath, hallucinations, uncontrollable tremors, or seizures. Prescriptions: Hydroxyzine Pamoate [Vistaril 50 mg Capsule] 50 mg PO DAILY #10 capsule Referrals: TAWNY WHITEHEAD MD [ACTIVE STAFF] - Follow up in 1 week
--- NOTE | 2016-11-03 15:46 | EKG REPORT ---
SEVERITY:- ABNORMAL ECG - SINUS TACHYCARDIA PROBABLE LEFT VENTRICULAR HYPERTROPHY NONSPECIFIC T ABNORMALITIES, INFERIOR LEADS : Confirmed by: Jia Molina 03-Nov-2016 15:45:51
[2016-11-03 16:12] VITALS: BP 120/88
== END 2016-11-03 16:13 | disposition home or self-care (01) ==
LOC: ER 13:01
DX: R00.0 Tachycardia, unspecified (principal); F10.10 Alcohol abuse, uncomplicated; F41.9 Anxiety disorder, unspecified; I10 Essential (primary) hypertension; F17.200 Nicotine dependence, unspecified, uncomplicated; Z88.0 Allergy status to penicillin
CPT/HCPCS: 36415; 80053; 80307; 81001; 85025; 93005; 93010; 99285

== ENCOUNTER 2016-11-15 23:51 | Emergency (ER) | payer SELFPAY ==
[2016-11-16] MEDS ORDERED: LIDOCAINE 1%/EPINEPHRINE INJ 20 ML VIAL INJ ONE (00:18)
--- NOTE | 2016-11-16 00:27 | ER Document Report ---
ED General - General Chief Complaint: Laceration Stated Complaint: LEFT WRIST LACERATION Notes: Patient is a 31-year-old female who presents with complaint of depression and suicidal thoughts. Patient cut herself several times. She has 3 lacerations on the left arm, to lacerations on left leg, 1 laceration on the right leg. Mother is at bedside and said the patient has been dealing with depression and alcoholism. Patient will like me much information herself. She does admit to cutting herself. TRAVEL OUTSIDE OF THE [place] IN LAST 30 DAYS: No - Related Data Allergies/Adverse Reactions: Penicillins Allergy (Verified 11/01/16 10:07) chlordiazepoxide [From Librium] Adverse Reaction (Verified 11/03/16 13:14) Past Medical History - Social History Smoking Status: Never Smoker Frequency of alcohol use: None Drug Abuse: None Family History: Reviewed & Not Pertinent - Past Medical History Cardiac Medical History: Reports: Hx Hypertension, Hx Heart Murmur Renal/ Medical History: Denies: Hx Peritoneal Dialysis Musculoskeltal Medical History: Denies Hx Arthritis Psychiatric Medical History: Reports: Hx Anxiety, Hx Attention Deficit Hyperactivity Disorder, Hx Schizophrenia Past Surgical History: Reports: Hx Gynecologic Surgery - D&C, Hx Hysterectomy - Immunizations Hx Diphtheria, Pertussis, Tetanus Vaccination: No Review of Systems - Review of Systems Notes: My Normal Review Basic REVIEW OF SYSTEMS: CONSTITUTIONAL : Denies fever, chills, or sweats. Denies recent illness. RESPIRATORY: Denies cough, cold, or chest congestion. Denies shortness of breath, difficulty breathing, or wheezing. GASTROINTESTINAL: Denies abdominal pain. Denies nausea, vomiting, or diarrhea. Denies constipation. Last BM: MUSCULOSKELETAL: Denies neck or back pain or joint pain or swelling. SKIN: Lacerations NEUROLOGICAL: Denies altered mental status or loss of consciousness. Denies headache. Denies weakness or paralysis or loss of use of either side. Denies problems with gait or speech. Denies sensory or motor loss. Psychiatry: Depression and suicidal thoughts. ALL OTHER SYSTEMS REVIEWED AND NEGATIVE. Physical Exam - Vital signs Vitals: Temp Pulse Resp BP Pulse Ox 97.7 F 74 15 92/56 L 98 11/16/16 06:33 11/16/16 06:33 11/16/16 06:33 11/16/16 06:33 11/16/16 06:33 - Notes Notes: General Appearance: Well nourished, alert, patient is heavily intoxicated., no acute distress, no obvious discomfort. Vitals: reviewed, See vital signs table. Head: no swelling or tenderness to the head Eyes: PERRL, EOMI, Conjuctiva clear Mouth: No decreasd moisture Neck: Supple, no neck tenderness, No thyromegaly Lungs: No wheezing, No rales, No rhonci, No accessory muscle use, good air exchange bilaterally. Heart: Normal rate, Regular rythm, No murmur, no rub Abdomen: Normal BS, soft, No rigidity, No abdominal tenderness, No guarding, no rebound, no abdominal masses, no organomegaly Extremities: strength 5/5 in all extremities, good pulses in all extremities, patient has 3 lacerations on the left upper extremity. Tumor and forearm. One is on the dorsum of the left hand. One on the dorsum of the left hand is approximately 3 some years in length. The superficial just through the dermis. It does not involve any tendons. The first laceration and forearm is on the distal forearm. It is approximately 2 cm in guess is a tetanus tissue. The third laceration is on the mid forearm. It is approximately 5 some years length. It does go to sub-cutaneous tissue. Does not appear to be any tendinous involvement. There is a small arterial bleeder coming from the subcutaneous tissue., Patient is able to move all fingers or hand without difficulty. Distal sensation is intact. Patient is to lacerations on left thigh. First laceration approximately 2 cm. No active bleeding. Second laceration is approximately 4 cm. No active bleeding. She has another laceration on the right thigh. This is approximately 2 cm in length. No active bleeding from this laceration. Patient has a total of 6 lacerations. No edema. Skin: warm, dry, appropriate color, no rash Neuro: speech is slurred due to intoxication, oriented x 3, normal affect, responds appropriately to questions. Course - Vital Signs Vital signs: Temp Pulse Resp BP Pulse Ox 98.4 F 78 19 106/68 100 11/17/16 16:00 11/17/16 16:00 11/17/16 16:00 11/17/16 16:00 11/17/16 16:00 - Laboratory Result Diagrams: 11/16/16 00:15 11/16/16 00:15 Laboratory results interpreted by me: 11/16/16 11/16/16 11/16/16 00:15 00:15 00:55 WBC 14.5 H RDW 14.5 H Absolute Lymphocytes 6.0 H Sodium 147.3 H Chloride 109 H AST 46 H ALT 72 H Urine Blood SMALL H Salicylates < 1.0 L Acetaminophen < 10 L - EKG Interpretation by Me Additional EKG results interpreted by me: 11/16/16 00:25 EKG is reviewed and interpreted by me. EKG shows normal sinus rhythm with rate of [address] segment elevation or depression. No ischemic T wave inversions. NV interval, QRS duration, QTC intervals are within normal range. Old EKG for comparison is from 2016. - Transfer of Care Notes: 11/16/16 06:12 Patient has been placed on involuntary commit paperwork because of her suicide attempt by cutting herself multiple times. She does have history of alcohol is him and therefore she is not yet medically cleared for psychiatric evaluation until she is clinically sober not showing any signs of withdrawal. Once she is clinically sober and is showing signs of withdrawal she will be medically cleared for psychiatric evaluation. Dictation of this chart was performed using voice recognition software; therefore, there may be some unintended grammatical errors. Procedures - Laceration/Wound Repair left forearm Wound length (cm): 5 Wound's Depth, Shape: Linear Laceration pre-procedure: Sterile PPE donned, Sterile drapes applied, Shur- Clens applied Anesthetic type: 1% Lidocaine w/epi Volume Anesthetic (mLs): 3 Wound explored: Clean Irrigated w/ Saline (mLs): 60 Wound Repaired With: Sutures Suture Size/Type: 4:0, Ethilon Number of Sutures: 11 Post-procedure wound care: Sterile dressing applied Post-procedure NV exam normal: Yes Complications: No left forearm #2 Wound length (cm): 3 Wound's Depth, Shape: Linear Laceration pre-procedure: Sterile PPE donned, Sterile drapes applied, Shur- Clens applied Anesthetic type: 1% Lidocaine w/epi Volume Anesthetic (mLs): 1 Wound explored: Clean, No foreign body removed Irrigated w/ Saline (mLs): 30 Wound Repaired With: Sutures Suture Size/Type: 4:0, Ethilon Number of Sutures: 3 Layer Closure?: No Deep Layer Suture Size/Type: 4:0 Post-procedure wound care: Sterile dressing applied Post-procedure NV exam normal: Yes Complications: No left hand laceration Wound length (cm): 3 Wound's Depth, Shape: Superficial, Linear Laceration pre-procedure: Sterile PPE donned, Sterile drapes applied, Shur- Clens applied Anesthetic type: 1% Lidocaine Volume Anesthetic (mLs): 2 Wound explored: Clean Irrigated w/ Saline (mLs): 20 Wound Repaired With: Sutures Suture Size/Type: 4:0 Number of Sutures: 6 Layer Closure?: No Post-procedure wound care: Sterile dressing applied Post-procedure NV exam normal: Yes Complications: No left thigh Wound length (cm): 2 Wound's Depth, Shape: Linear Laceration pre-procedure: Sterile PPE donned, Sterile drapes applied, Shur- Clens applied Anesthetic type: 1% Lidocaine w/epi Volume Anesthetic (mLs): 1 Wound explored: Clean Irrigated w/ Saline (mLs): 30 Wound Repaired With: Sutures Suture Size/Type: 4:0, Ethilon Number of Sutures: 3 Layer Closure?: No Post-procedure wound care: Sterile dressing applied Post-procedure NV exam normal: Yes Complications: No thigh #2 Wound length (cm): 3 Wound's Depth, Shape: Linear Laceration pre-procedure: Sterile PPE donned, Sterile drapes applied, Shur- Clens applied Anesthetic type: 1% Lidocaine w/epi Volume Anesthetic (mLs): 2 Irrigated w/ Saline (mLs): 40 Wound Repaired With: Sutures Suture Size/Type: 4:0, Ethilon Number of Sutures: 6 Post-procedure wound care: Sterile dressing applied Post-procedure NV exam normal: Yes Complications: No right thigh Wound length (cm): 2 Wound's Depth, Shape: Linear Laceration pre-procedure: Sterile PPE donned, Sterile drapes applied, Shur- Clens applied Anesthetic type: 1% Lidocaine w/epi Volume Anesthetic (mLs): 1 Wound explored: Clean Irrigated w/ Saline (mLs): 20 Wound Repaired With: Sutures Suture Size/Type: 4:0, Ethilon Number of Sutures: 3 Post-procedure wound care: Sterile dressing applied Post-procedure NV exam normal: Yes Complications: No Discharge - Discharge Disposition: PSYCH HOSP/UNIT
[2016-11-16 00:31] LABS: ABSOLUTE BASOPHILS # (AUTO) 0.1 10^3/uL (0.0-0.2); ABSOLUTE EOSINOPHILS # (AUTO) 0.1 10^3/uL (0.0-0.6); ABSOLUTE MONOCYTES (AUTO) 0.7 10^3/uL (0.1-1.4); ABSOLUTE NEUT (AUTO) 7.7 10^3/uL (1.7-8.2); BASOPHILS % (AUTO) 0.5 % (0-2); EOSINOPHILS % (AUTO) 0.9 % (0-6); HEMATOCRIT 40.8 % (36.0-47.0); HEMOGLOBIN 13.7 g/dL (12.0-15.5); HGB HCT DIFFERENCE 0.3; LYMPHOCYTES % (AUTO) 41.4 % (13-45); MEAN CORPUSCULAR HEMOGLOBIN 32.5 pg (27.0-33.4); MEAN CORPUSCULAR HGB CONC 33.6 g/dL (32.0-36.0); MEAN CORPUSCULAR VOLUME 97 fl (80-97); MONOCYTES % (AUTO) 4.5 % (3-13); RED BLOOD COUNT 4.22 10^6/uL (3.72-5.28); RED CELL DISTRIBUTION WIDTH 14.5 % (11.5-14.0); SEGMENTED NEUTROPHILS % (AUTO) 52.7 % (42-78); WHITE BLOOD COUNT 14.5 10^3/uL (4.0-10.5)
[2016-11-16] MEDS ORDERED: HALOPERIDOL LACTATE INJ 5 MG/1 ML VIAL IM ONE (00:49)
[2016-11-16 00:50] LABS: ALANINE AMINOTRANSFERASE 72 U/L (9-52); ALBUMIN 4.6 g/dL (3.5-5.0); ALCOHOL 280 mg/dL (NONE DETECTED); ALKALINE PHOSPHATASE 85 U/L (38-126); ANION GAP 15 (5-19); ASPARTATE AMINO TRANSFERASE 46 U/L (14-36); BILIRUBIN,TOTAL 0.5 mg/dL (0.2-1.3); BLOOD UREA NITROGEN 9 mg/dL (7-20); CALCIUM 10.2 mg/dL (8.4-10.2); CARBON DIOXIDE 23 mmol/L (22-30); CHLORIDE 109 mmol/L (98-107); CREATININE RESULT 0.93 mg/dL (0.52-1.25); GLUCOSE 101 mg/dL (75-110); POTASSIUM 3.8 mmol/L (3.6-5.0); SODIUM 147.3 mmol/L (137-145); TOTAL PROTEIN 7.8 g/dL (6.3-8.2)
[2016-11-16 01:24] LABS: APPEARANCE,URINE CLEAR; BILIRUBIN,URINE NEGATIVE (NEGATIVE); GLUCOSE, URINE NEGATIVE (NEGATIVE); KETONES,URINE NEGATIVE (NEGATIVE); LEUKOCYTE ESTERASE,URINE NEGATIVE (NEGATIVE); NITRITE,URINE NEGATIVE (NEGATIVE); PROTEIN,URINE NEGATIVE (NEGATIVE); URINE SPECIFIC GRAVITY 1.003; UROBILINOGEN,URINE NEGATIVE mg/dL (<2.0)
[2016-11-16 01:38] LABS: URINE BARBITURATES SCREEN NEGATIVE; URINE METHADONE SCREEN NEGATIVE; URINE OPIATES LOW NEGATIVE; URINE PHENCYCLIDINE SCREEN NEGATIVE
[2016-11-16] MEDS ORDERED: ACETAMINOPHEN 325 MG TABLET PO ONE (09:43)
--- NOTE | 2016-11-16 09:48 | ER Document Report ---
Doctor's Note Notes: 11/16/16 09:44 Medical rounds: Chart reviewed and patient interviewed briefly. Patient is alert, oriented, and coherent. Complains of pain in left upper extremity where lacerations have been repaired. Left hand is intact with regard to circulation , sensation, and motor functions. Vital signs are satisfactory. Laboratory results are remarkable for multiple positive toxicology screens and slightly elevated AST and ALT liver enzymes. Patient will be medicated for pain with Tylenol. She is medically stable and psychosocial evaluation has been requested.
--- NOTE | 2016-11-16 10:31 | EKG REPORT ---
SEVERITY:- ABNORMAL ECG - SINUS RHYTHM PROBABLE LEFT VENTRICULAR HYPERTROPHY : Confirmed by: Jia Molina 16-Nov-2016 10:30:42
--- NOTE | 2016-11-16 12:54 | PSYCHOLOGICAL NOTE ---
Psych Note - Psych Note Psych Note: Patient is a 31 year old female who presented overnight with a total of 6 self- inflicted lacerations to arms and thigh. Patient was acutely intoxicated upon arrival (288) with a noted history of alcoholism and depression. Patient was placed under IVC, petitioned by ED MD and required medical clearance prior to psychiatric evaluation, per MD's note. Patient this morning was seen on rounds by ED MD and has been medically cleared. Patient this morning states she really does not think she was trying to kill herself. She states she was upset because she saw her kids, and "always have an episode like this." Patient reports she is upset because she cannot see or talk with her children often, which she states is due to her instability and their father not answering the phone. 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 Patient states she had been abstaining from alcohol, with the exception of 1 or so beer per day. Patient states she does think about suicide and that at times she wants to . Patient states she is currently in a tremendous amount of pain from her cuts. Patient's boyfriend, Braydon states: they have been on the outs due to comments she made about his mother's recently . He states he told her to "kick rocks," and since then she left from his home and has been staying elsewhere for the past 2 weeks. He states over the past couple of days, she starts "trippin out" tells him to leave, etc. He states yesterday she needed a ride to see her kids, and returned and listened to music and hanging out in the kitchen have a few drinks. He states he laid down and took a nap and woke up to someone banging on his door which was closed, which he states is never closed, and it was a [facility] and a EMT reporting she has cut, etc. He states they ahve been together for 3 years, and while she has cut before, never this severe. Patient is A&O. Mood is irritable, but mostly sad. Patient does not fully commit to having or not having suicidal ideations, intent, plan, or means. Patient is unable to report full intentions behind her self injurious behaviors last night. Patient denied A/V H; delusions not noted. Thought processes were organized, but appeared guarded. Conversational speech was WNL for rate, tone, and prosody. Intellectual abilities were estimated within average range. Attention and focus were poor. Insight, judgment, and impulse control were poor. Unspecified Schizophrenia and Other Psychosis Alcohol Use Disorder, Severe Patient is recommended to remain under IVC and seek 24 hour inpatient psychiatric care. Patient is a danger to herself due to poor impulse control, poor judgment, and inability to state her intent behind her self injurious cutting, which should be noted caused arterial damage. Patient is medically cleared and does not require any further medical intervention. I consulted with Dr. Gomez in regards to the care and management of this patient. ED MD is in agreement with disposition and recommendations.
[2016-11-16] MEDS: IBUPROFEN 800 MG TABLET PO PRN (17:43)
[2016-11-16] MEDS ORDERED: NICOTINE 14 MG/24 HR PATCH.TD24 TD ONE (17:46)
[2016-11-16] MEDS ORDERED: HYDROXYZINE PAMOATE 50 MG CAPSULE PO PRN (20:15)
[2016-11-17] MEDS: IBUPROFEN 800 MG TABLET PO PRN (08:47)
--- NOTE | 2016-11-17 09:26 | ER Document Report ---
Doctor's Note Notes: 11/17/16 09:24 31-year-old female with past medical history of cutting who presents secondary to sadness about not seeing her children with self-inflicted lacerations as well as alcohol intoxication. Patient's wounds were then cleaned and dressed. Patient currently denies any complaints. Vital signs within normal limits. Labs upon presentation and repeat alcohol as recorded. Psychiatry has seen the patient and after speaking with the boyfriend recommended IVC to a 24-hour monitored facility. We are awaiting placement. 11/17/16 16:00 No change in exam. Vital signs are stable. Patient is being transferred to the psych facility.
--- NOTE | 2016-11-17 10:08 | PSYCHOLOGICAL NOTE ---
Psych Note - Psych Note Psych Note: Conducted check in with patient who is a 31 year old female under IVC at [facility] ED due to SI with excessive self injurious cutting requiring 40+ sutures, to include an arterial bleed. Patient has been medically stable and no further intervention is required for these injuries. Patient was also acutely intoxicated upon arrival, but continued to endorse SI throughout the day. Patient this morning states there is nothing that can be done for her here. Patient states she needs to get back on her psychiatric medications, but cannot afford them. Patient states she did pursue treatment via [facility]; however, in order to engage in their state funded program, she would be required to attend 3x a week group sessions. Patient states she does not have transportation, and getting there once per month for medication management may be doable, but not 3 times per week. Patient states the Klonopin used to help slow her down and quell her anxiety, and the anticpsychotic she was on worked for her hallucinations. Patient is unable to recall the name of the antipsychotic, but seems to think it was an older medication. Patient identifies her symptoms as hearing radios in [place], clowns talking to her, seeing the sheets on the bed twist around. Patient states without the medications, she chele by sleeping, which she states she has chosen to do here. Patient denies wanting to by suicide; however, when asked what has changed between yesterday and today, patient states, "I want to leave." Patient is A&Ox4. Mood is irritable with flat affect. Patient endorses suicidal ideations but does not commit to plan. Patient denies homicidal ideations, intent, plan, or means. Unspecified Schizophrenia and Other Related Psych Alcohol Use Disorder, Severe
[2016-11-17] MEDS ORDERED: BENZTROPINE MESYLATE 1 MG TABLET PO SCH (12:00)
[2016-11-17] MEDS ORDERED: HALOPERIDOL 5 MG TABLET PO SCH (12:00)
[2016-11-17] MEDS ORDERED: BUSPIRONE HCL 10 MG TABLET PO SCH (12:00)
[2016-11-17 16:01] VITALS: BP 106/68
== END 2016-11-17 16:15 ==
LOC: ER 23:51
PROC: 0HQGXZZ Repair Left Hand Skin, External Approach (ICD-10-PCS; principal; 2016-11-15)
PROC: 0HQEXZZ Repair Left Lower Arm Skin, External Approach (ICD-10-PCS; 2016-11-15)
PROC: 0HQJXZZ Repair Left Upper Leg Skin, External Approach (ICD-10-PCS; 2016-11-15)
PROC: 0HQHXZZ Repair Right Upper Leg Skin, External Approach (ICD-10-PCS; 2016-11-15)
DX: S61.412A Laceration without foreign body of left hand, initial encounter (principal); S51.812A Laceration without foreign body of left forearm, initial encounter; S71.112A Laceration without foreign body, left thigh, initial encounter; S71.111A Laceration without foreign body, right thigh, initial encounter; X78.9XXA Intentional self-harm by unspecified sharp object, initial encounter; F32.9 Major depressive disorder, single episode, unspecified; R74.8 Abnormal levels of other serum enzymes; F10.229 Alcohol dependence with intoxication, unspecified; I10 Essential (primary) hypertension; Z88.0 Allergy status to penicillin
CPT/HCPCS: 93005; 99285; 96372; 36415; 80307 ×4; 84703; 85025; 80053; 81001; 93010; 12005; J1630; J3490

== ENCOUNTER 2019-06-30 21:06 | Emergency (ER) | payer SELFPAY ==
[2019-06-30] MEDS ORDERED: PENICILLIN V POTASSIUM 500 MG TABLET PO ONE (22:38)
[2019-06-30] MEDS ORDERED: FLUCONAZOLE 100 MG TABLET PO ONE (22:38)
[2019-06-30] MEDS ORDERED: LIDOCAINE 2% VISCOUS SOLN 20 ML UDCUP PO ONE (22:40)
--- NOTE | 2019-06-30 22:46 | ER Document Report ---
HPI - HPI Time Seen by Provider: 06/30/19 22:29 Pain Level: 4 Context: Patient is a 33-year-old female with poor dental hygiene who presents emergency department with tooth pain to tooth #18. She states that she was trying to get an appointment with [facility], but could not get in. Patient states that the pain is severe and she has been drinking alcohol to help with her pain. - CONSTITUTIONAL Constitutional: DENIES: Fever, Chills - EENT Notes: Tooth pain to tooth #18 - NEURO Neurology: REPORTS: Headache - CARDIOVASCULAR Cardiovascular: DENIES: Chest pain - RESPIRATORY Respiratory: DENIES: Trouble Breathing, Coughing - REPRODUCTIVE Reproductive: DENIES: : - MUSCULOSKELETAL Musculoskeletal: DENIES: Extremity pain - DERM Skin Color: Normal Skin Problems: None Past Medical History - General Information source: Patient - Social History Smoking Status: Current Every Day Smoker Family History: Reviewed & Not Pertinent - Past Medical History Cardiac Medical History: Reports: Hx Hypertension, Hx Heart Murmur Renal/ Medical History: Denies: Hx Peritoneal Dialysis Musculoskeletal Medical History: Denies Hx Arthritis Psychiatric Medical History: Reports: Hx Anxiety, Hx Attention Deficit Hyperactivity Disorder, Hx Schizophrenia Past Surgical History: Reports: Hx Gynecologic Surgery - D&C, Hx Hysterectomy - Immunizations Hx Diphtheria, Pertussis, Tetanus Vaccination: No Vertical Provider Document - CONSTITUTIONAL Agree With Documented VS: Yes Exam Limitations: No Limitations General Appearance: No Apparent Distress - INFECTION CONTROL TRAVEL OUTSIDE OF THE [place] IN LAST 30 DAYS: No - HEENT HEENT: Normocephalic, PERRLA - NECK Neck: Normal Inspection - RESPIRATORY Respiratory: Breath Sounds Normal, No Respiratory Distress - CARDIOVASCULAR Cardiovascular: Regular Rate, Regular Rhythm Pulses: Normal: Radial - NEURO Level of Consciousness: Awake, Alert, Appropriate - DERM Integumentary: Warm, Dry, No Rash Course - Re-evaluation Re-evalutation: 06/30/19 22:48 Patient states that her allergy to penicillin is that she gets a yeast infection. She will be covered with Diflucan. Patient's physical exam and history is most consistent with a infected tooth. Patient is able to swallow, no facial swelling noted, airway is patent, vital signs are normal. I do not suspect Sacha's angina, peritonsilar abscess, or airway obstruction. The patient will be started on oral antibiotics. I have given the patient education on their antibiotics. Patient was given instructions to follow-up with a dentist this week. Return precautions were given. Verbal discharge instructions were given. Patient verbalized understanding. Patient is stable for discharge. - Vital Signs Vital signs: Temp Pulse Resp BP Pulse Ox 97.6 F 87 22 H 172/121 H 99 06/30/19 21:42 06/30/19 21:42 06/30/19 21:42 06/30/19 21:42 06/30/19 21:42 Discharge - Discharge Clinical Impression: Toothache Condition: Stable Disposition: HOME, SELF-CARE Instructions: Penicillin V K ([facility]), Toothache ([facility]) Additional Instructions: You have been seen in the emergency department for a toothache. You may take ibuprofen 600 mg and Tylenol 1000 mg every 6 hours as needed for the pain. You have also been given topical lidocaine. Placed that to the affected tooth as needed to help with pain. You have also been prescribed antibiotics. Please take the antibiotics as prescribed, even if you start to feel better. If you develop a fever greater than 100.4 F, or have any symptoms that are worrisome to you, please return to the emergency department. Please follow-up with [facility] this week in regards to your visit. You are also being started on Diflucan to prevent a yeast infection. Take your next dose on 07/03/2019. Prescriptions: Fluconazole [Diflucan] 150 mg PO ONCE PRN #1 tablet PRN Reason: Penicillin V Potassium [Penicillin Vk 500 mg Tablet] 500 mg PO BID #28 tablet Referrals: [facility] [Provider Group] - Follow up in 1 week
[2019-06-30 23:00] VITALS: BP 149/98
== END 2019-06-30 22:56 | disposition home or self-care (01) ==
LOC: ER 21:06
DX: K08.9 Disorder of teeth and supporting structures, unspecified (principal); F17.200 Nicotine dependence, unspecified, uncomplicated; I10 Essential (primary) hypertension; Z88.0 Allergy status to penicillin
CPT/HCPCS: J3490

== ENCOUNTER 2020-03-20 14:14 | Emergency (ER) | payer SELFPAY ==
[2020-03-20] MEDS ORDERED: KETOROLAC TROMETHAMINE INJ/PF 30 MG/1 ML SDV IM ONE (15:10)
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
[2020-03-20] MEDS ORDERED: ONDANSETRON 4 MG TAB.RAPDIS PO ONE (16:05)
[2020-03-20 16:23] VITALS: BP 128/78
[2020-03-20] MEDS ORDERED: CEPHALEXIN 500 MG CAPSULE PO ONE (16:28)
== END 2020-03-20 16:35 | disposition home or self-care (01) ==
LOC: ER 14:14
DX: S51.011A Laceration without foreign body of right elbow, initial encounter (principal); S20.212A Contusion of left front wall of thorax, initial encounter; R06.02 Shortness of breath; V19.9XXA Pedal cyclist (driver) (passenger) injured in unspecified traffic accident, initial encounter; F17.210 Nicotine dependence, cigarettes, uncomplicated; I10 Essential (primary) hypertension
CPT/HCPCS: 99283; 96372; 73080; 71101; S0119; J1885

== ENCOUNTER 2020-11-06 11:05 | Emergency (ER) | payer SELFPAY ==
[2020-11-06 11:33] VITALS: BP 148/96
[2020-11-06] MEDS ORDERED: NAPROXEN 250 MG TABLET PO ONE (11:41)
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
[2020-11-06 12:09] LABS: ABSOLUTE BASOPHILS # (AUTO) 0.1 10^3/uL (0.0-0.2); ABSOLUTE EOSINOPHILS # (AUTO) 0.3 10^3/uL (0.0-0.6); ABSOLUTE LYMPHOCYTES (AUTO) 2.6 10^3/uL (0.5-4.7); ABSOLUTE MONOCYTES (AUTO) 0.7 10^3/uL (0.1-1.4); BASOPHILS % (AUTO) 0.8 % (0-2); EOSINOPHILS % (AUTO) 3.6 % (0-6); HEMATOCRIT 41.3 % (36.0-47.0); HEMOGLOBIN 14.4 g/dL (12.0-15.5); LYMPHOCYTES % (AUTO) 26.8 % (13-45); MEAN CORPUSCULAR HEMOGLOBIN 33.5 pg (27.0-33.4); MEAN CORPUSCULAR HGB CONC 34.7 g/dL (32.0-36.0); MEAN CORPUSCULAR VOLUME 96 fl (80-97); MONOCYTES % (AUTO) 6.9 % (3-13); PLATELET COUNT 370 10^3/uL (150-450); RED BLOOD COUNT 4.29 10^6/uL (3.72-5.28); RED CELL DISTRIBUTION WIDTH 13.6 % (11.5-14.0); SEGMENTED NEUTROPHILS % (AUTO) 61.9 % (42-78); TOTAL CELLS COUNTED % (AUTO) 100 %; WHITE BLOOD COUNT 9.6 10^3/uL (4.0-10.5)
[2020-11-06 12:27] LABS: BLOOD UREA NITROGEN 26 mg/dL (7-20); CALCIUM 9.9 mg/dL (8.4-10.2); GLUCOSE 75 mg/dL (75-110); POTASSIUM 4.8 mmol/L (3.6-5.0)
[2020-11-06 12:33] LABS: CARBON DIOXIDE 33 mmol/L (22-30); CHLORIDE 101 mmol/L (98-107)
[2020-11-06 12:38] LABS: ANION GAP 4 (5-19)
[2020-11-06] MEDS ORDERED: LIDOCAINE 1%/EPINEPHRINE INJ 20 ML VIAL INJ ONE (13:10)
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
[2020-11-06] MEDS ORDERED: TRAMADOL HCL 50 MG TABLET PO ONE (13:40)
== END 2020-11-06 14:04 | disposition home or self-care (01) ==
LOC: ER 11:05
DX: L02.811 Cutaneous abscess of head [any part, except face] (principal); F17.200 Nicotine dependence, unspecified, uncomplicated; I10 Essential (primary) hypertension
CPT/HCPCS: 99283; 36415; 85025; 80048; 10060; J3490